=== PATIENT | male | born 1970 | race Caucasian/White ===

== ENCOUNTER 2020-11-26 09:23 | Emergency (ER) | payer SELFPAY ==
[~2020-11-26] VITALS: Ht 188 cm; Wt 88.6 kg
[2020-11-26 09:42] LABS: BASOPHILS 0.7 % (0-2); EOSINOPHILS 2.2 % (0-7); HEMATOCRIT 45.1 % (42.0-54.0); HEMOGLOBIN 15.1 g/dL (13.5-17.5); LYMPHOCYTES 34.4 % (15-50); MCH 30.7 pg (26.0-34.0); MCHC 33.5 g/dL (31.0-37.0); MCV 91.7 fL (80.0-100.0); MEAN PLATELET VOLUME 7.9 fL (7.4-10.4); MONOCYTES 8.3 % (2-11); NEUTROPHILS 54.4 % (40-80); PLATELET COUNT 356 10x3/uL (130-400); RBC 4.92 10x6/uL (4.20-6.10); RDW 13.7 % (11.5-14.5); WBC 7.4 10x3/uL (4.8-10.8)
[2020-11-26 09:52] VITALS: Ht 188 cm; Wt 88.6 kg
[2020-11-26 09:52] LABS: INR 1.06 (0.85-1.17); PROTIME 12.8 SECONDS (11.6-15.0)
[2020-11-26 09:53] LABS: ANION GAP 15.6 mmol/L (8-16); CALCIUM 9.2 mg/dL (8.5-10.1); CREATININE - SERUM 1.2 mg/dL (0.6-1.3); POTASSIUM - SERUM 3.6 mmol/L (3.5-5.1)
[2020-11-26 09:59] LABS: ALBUMIN 4.3 g/dL (3.4-5.0); BILIRUBIN - TOTAL 0.49 mg/dL (0.2-1.3); PROTEIN - SERUM 7.9 g/dL (6.4-8.2)
[2020-11-26 11:45] VITALS: BP 125/80
== END 2020-11-26 11:47 | disposition other institution (70) ==
LOC: D.ER 09:23
PROVIDERS: Family Medicine
DX: S12.600A Unspecified displaced fracture of seventh cervical vertebra, initial encounter for closed fracture (principal); W17.89XA Other fall from one level to another, initial encounter; Y93.9 Activity, unspecified; Y92.9 Unspecified place or not applicable